=== PATIENT | female | born 1995 | race Caucasian/White ===

== ENCOUNTER 2018-01-11 11:30 | Emergency (ER) | payer SELFPAY ==
[~2018-01-11] VITALS: Ht 177.8 cm; Wt 56.7 kg
--- NOTE | 2018-01-11 11:33 | NUR ---
PATIENT TO ED FROM 3RD FLOOR DT NEAR SYNCOPAL EPISODE, PATIENT RECEIVED AWAKE AND ALERT, HOWEVER, PATIENT LOOKS PALE. PATIENT APPEARS IN NO DISTRESS. AFEBRILE. REPORTED VOMITTING X 1 LAST NIGHT. DENIES PAIN. VSS. CONNECTED TO TELE MONITOR. PENDING MD EVALUATION.
[2018-01-11] MEDS ORDERED: IV NS 0.9% 1,000 ML BAG IV ONE (12:00)
--- NOTE | 2018-01-11 13:25 | NUR ---
PATIENT'S OBSTETRICAL TECH CALLED ED-- TELLING RN NOT TO DISCHARGE PATIENT UNLESS PT GETS "DRUGS" TEST. NOTIFIED MD PRO AT [facility] STATED "THERES IS NO INDICATION FOR US TO DO ANY DRUG TEST." PATIENT MADE AWARE. CHARGE NURSE AWARE. NO DRUG TEST WILL BE DONE. Patient discharged to home in stable condition. Written and verbal after care instructions given. Patient verbalizes understanding of instruction.
[2018-01-11 13:32] VITALS: BP 122/79
== END 2018-01-11 13:35 | disposition home or self-care (01) ==
LOC: ER 11:33
DX: R55 Syncope and collapse (principal); E86.0 Dehydration
CPT/HCPCS: 82962-TC; 84703-TC; A4606; J7030; Z7610